=== PATIENT | female | born 1975 | race American Indian/Alaskan Native ===

== ENCOUNTER 2017-05-27 14:55 | Emergency (ER) | payer OTHER ==
[2017-05-27 15:06] VITALS: BMI 34.5
[2017-05-27] MEDS ORDERED: Betamethasone Soluspan 30 mg/5mL Inj Susp IM STA (15:06)
--- NOTE | 2017-05-27 16:52 | OBHP ---
Datetime: 05/27/2017 14:41 IP Adm Impression: , intrauterine ; No Active Labor IP Chief Complaint Other: For Celostone Injection IP Adm Impression Other: Twin , IP Admit Plan: Observation/Evaluation; Discharge home Admit Comment, IP Provider: with Twin sent here today from Dr Reinoso office for Ainsley ostone due to a shortened cervix on OB sonogram. She denies any current complaints. the benefits, ris ksand alternatives to steroid use were d/w the patient and all her questions were answered.. A dose o f betametazone was given and Pt asked to return in 24 hours for a repeat shot. Pt promises to return. She was also asked to return to Dr Reinoso for regular OB checks. Extremities - PN: Normal Abdomen - PN: Normal Back - PN: Normal Lungs - PN: Normal Heart - PN: Normal Neurologic - PN: Normal General - PN: Normal Presentation-Admit: Vertex FHR - Baseline A Provider: 130s Contraction Comments Provider: None Gestation - Est Wks by US: 31.0 Vital Signs Provider: Reviewed IP Chief Complaint: Maternal discomfort; Other NICHD Variability Prov Fetus A: Moderate 6-25bpm NICHD Accel Fetus A IP Provider: [id number] FHR Category Provider Fetus A: Category I NICHD Decel Fetus A IP Provider: None
[2017-05-27 22:05] VITALS: BP 110/61; PULSE 73; RESP 18; TEMP 98.9; O2SAT 100
== END 2017-05-27 16:10 | disposition home or self-care (01) ==
LOC: H.EROB2 14:55
DX: O26.873 Cervical shortening, third trimester (principal); O30.003 Twin pregnancy, unspecified number of placenta and unspecified number of amniotic sacs, third trimester; Z3A.31 31 weeks gestation of pregnancy; Z23 Encounter for immunization
CPT/HCPCS: 96372; 99283; J0702

== ENCOUNTER 2017-05-28 15:42 | Emergency (ER) | payer OTHER ==
[2017-05-28 15:47] VITALS: BMI 34.7
[2017-05-28] MEDS ORDERED: Betamethasone Soluspan 30 mg/5mL Inj Susp IM ONE (15:48)
--- NOTE | 2017-05-28 16:09 | OBHP ---
Datetime: 05/28/2017 15:49 Admit Comment, IP Provider: with Twin sent here today for second Celestone due to a s hortened cervix on OB sonogram. A dose of betametazone was given yesterday. She asked to return in 24 hours for a repeat shot. POBGYNH: x 1; C/S x 2 PMH: Anemia PSH: breast abscess; C/ S NKA PSOH: denies smoking ETOH drugs A: IUP at 30w; twin preg; shortened cevix PLAN: second dose of betamethosone Follow up Dr Hough Jun 02 Extremities - PN: Normal Abdomen - PN: Normal Back - PN: Normal Thyroid - PN: Normal Neurologic - PN: Normal HEENT - PN: Normal General - PN: Normal Genitourinary Exam: Normal
[2017-05-28 20:40] VITALS: BP 102/61; PULSE 69; RESP 18
== END 2017-05-28 16:35 | disposition home or self-care (01) ==
LOC: H.EROB2 15:42
DX: O26.843 Uterine size-date discrepancy, third trimester (principal); O30.003 Twin pregnancy, unspecified number of placenta and unspecified number of amniotic sacs, third trimester; Z23 Encounter for immunization; Z3A.30 30 weeks gestation of pregnancy
CPT/HCPCS: 96372; 99281; J0702

== ENCOUNTER 2017-07-14 05:45 | Inpatient (IN) | payer OTHER ==
[2017-07-14] MEDS ORDERED: Oxytocin 30 units/LR 500ML 30 U/500 ML BAG IV SCH (06:30)
[2017-07-14] MEDS: Lactated Ringer's 1,000 ML IV SCH ×5 (06:30→19:57)
[2017-07-14 07:19] LABS: BASO # 0.1 K/uL (0.0-0.2); BASO % 0.7 % (0.0-2.0); EOS # 0.1 K/uL (0.0-0.7); EOS % 0.8 % (0.0-4.0); HEMOGLOBIN 9.6 g/dL (12.0-16.0); LYMPH # 1.5 K/uL (1.0-4.3); LYMPH % 17.6 % (20.0-40.0); MEAN CELL VOLUME 77.9 fl (81.0-99.0); MEAN CORPUSCULAR HEMOGLOBIN 24.3 pg (27.0-31.0); MEAN CORPUSCULAR HGB CONC 31.2 g/dL (33.0-37.0); MONO # 0.6 K/uL (0.0-0.8); MONO % 6.9 % (0.0-10.0); NEUT # 6.4 K/uL (1.8-7.0); NRBC % 0.2 % (0.0-0.0); RBC 3.95 Mil/uL (3.80-5.20); RED CELL DISTRIBUTION WIDTH 30.4 % (11.5-14.5); WHITE BLOOD COUNT 8.6 K/uL (4.8-10.8)
[2017-07-14] MEDS ORDERED: ceFAZolin 2 GM in Sodium Chloride 0.9% 100 ML IVPB ONE (08:00)
[2017-07-14] MEDS ORDERED: Oxytocin 30 units/LR 500ML 30 UNITS/500 ML BAG IV ONE (08:02)
[2017-07-14] MEDS ORDERED: Morphine 1 mg/ml preservative-free Inj(Duramorph) ONE (09:27)
[2017-07-14] MEDS ORDERED: Phenylephrine 10 mg/ml Inj ONE (10:03)
[2017-07-14] MEDS ORDERED: Oxycodone/Acetaminophen 5/325 mg Tab PO PRN ×3 (10:52→14:51)
[2017-07-14] MEDS ORDERED: DiphenhydrAMINE 50 mg/ml Inj IVP PRN ×2 (11:10→14:51)
[2017-07-14] MEDS ORDERED: Naloxone 0.4 mg/ml Inj (Adult) IVP PRN ×2 (11:10→14:51)
[2017-07-14] MEDS ORDERED: Simethicone 80 mg Chewtab PO SCH (16:00)
[2017-07-14] MEDS: Simethicone 80 mg Chewtab PO SCH ×2 (17:07→22:45)
[2017-07-15] MEDS: Simethicone 80 mg Chewtab PO SCH ×4 (04:03→22:14)
[2017-07-15] MEDS: Oxycodone/Acetaminophen 5/325 mg Tab PO PRN ×2 (04:03→12:07)
[2017-07-15] MEDS: Lactated Ringer's 1,000 ML IV SCH (04:05)
[2017-07-15 06:42] LABS: HEMOGLOBIN 8.2 g/dL (12.0-16.0); MEAN CELL VOLUME 79.1 fl (81.0-99.0); MEAN CORPUSCULAR HEMOGLOBIN 24.8 pg (27.0-31.0); MEAN CORPUSCULAR HGB CONC 31.3 g/dL (33.0-37.0); RBC 3.32 Mil/uL (3.80-5.20); RED CELL DISTRIBUTION WIDTH 31.1 % (11.5-14.5); WHITE BLOOD COUNT 10.7 K/uL (4.8-10.8)
--- NOTE | 2017-07-15 07:52 | OBPPN ---
Datetime: 07/15/2017 07:48 PP Pain Prov: Within normal limits PP Nausea Prov: Denies PP Flatus Prov: Yes PP BM Prov: No PP Heart Prov: Not Done PP Abdomen/Uterus Prov: Normal PP Lochia Prov: Normal PP Extremities Prov: Normal PP C/S Incision Prov: Normal PP Progress Prov: Normal PP Comments Phys Exam Prov: Incision intact w/ steri strips PP Impression Prov: Normal progression PP Plan Prov: Continue present management PP Progress Note Prov: POD 1 s/p cesrean section for twins, doing well, breast and bottle feeding Continue current care Vital Signs Provider PP: Reviewed; Within Normal Limits
[2017-07-16] MEDS: Simethicone 80 mg Chewtab PO SCH ×4 (05:36→21:35)
--- NOTE | 2017-07-16 11:37 | OBPPN ---
Datetime: 07/16/2017 11:33 PP Pain Prov: Within normal limits PP Nausea Prov: Denies PP Flatus Prov: Yes PP BM Prov: No PP Breasts Prov: Normal PP Heart Prov: Normal PP Lungs Prov: Normal PP Abdomen/Uterus Prov: Normal PP Lochia Prov: Normal PP Vulva/Perineum Prov: Not Done PP CVA Tenderness Prov: Normal PP Extremities Prov: Normal PP C/S Incision Prov: Normal PP Progress Prov: Normal PP Impression Prov: Normal progression PP Plan Prov: Continue present management PP Progress Note Prov: She feels fine. Babies are in Level 2 nursery A: S/P day 2 A neg Anemia: asymptomatic PLAN: cnot post op care; anticiapte dischagre tmrw Vital Signs Provider PP: Reviewed; Within Normal Limits
[2017-07-17] MEDS: Simethicone 80 mg Chewtab PO SCH ×3 (02:44→13:25)
--- NOTE | 2017-07-17 16:50 | OBPPN ---
Datetime: 07/17/2017 16:48 PP Pain Prov: Within normal limits PP Nausea Prov: Denies PP Flatus Prov: Yes PP BM Prov: Yes PP Breasts Prov: Normal PP Heart Prov: Normal PP Lungs Prov: Normal PP Abdomen/Uterus Prov: Normal PP Lochia Prov: Normal PP Vulva/Perineum Prov: Normal PP CVA Tenderness Prov: Normal PP Extremities Prov: Normal PP Comments Phys Exam Prov: Incision clean, dry, intact No deep calf tenderness bilaterally Uterus firm, below umbilicus PP Impression Prov: Normal progression PP Plan Prov: Discharge PP Progress Note Prov: Postop day #3 status post repeat and bilateral tubal ligation, kristina vering well Discharge home with postop instructions Follow-up in office in 1 week for incision check Vital Signs Provider PP: Reviewed; Within Normal Limits
--- NOTE | 2017-07-17 16:53 | OBDCSUM ---
Datetime: 07/17/2017 13:23 Discharged to, Provider: Home Follow up at, Provider: Dr. Reinoso Disch Instr Activity: Normal activity Disch Instr Diet: Regular Discharge Instructions, Provider: Routine instructions given Discharge Diagnosis, Provider: Term Delivered Discharge Time: 07/17/2017 13:30 Follow up in weeks, Provider: in 1 week Disch Referrals: None Contraception discussed, Prov: Yes Disch Activity Restrictions: No exercising; No lifting; No driving; No sexual activity; Nothing in v agina - [place], tampons, douche Contraception after Delivery: Tubal Ligation
[2017-07-17 19:04] VITALS: BP 137/72; PULSE 83; RESP 18; TEMP 97; O2SAT 98
--- NOTE | 2017-07-17 21:19 | OP ---
PROCEDURE DATE: 07/14/2017 PREOPERATIVE DIAGNOSIS: Previous section x2, twin gestation. POSTOPERATIVE DIAGNOSIS: Previous section x2, twin gestation. OPERATION PERFORMED: Repeat low-flap transverse section via Pfannenstiel incision, bilateral tubal ligation in Miles fashion. OPERATIVE FINDINGS: Viable males. A male vertex presentation and infant B male vertex presentation. SURGEON: Mal Gore MD FRONT OFFICE ASSISTANT: Fritz Jain MD. Dr. Jain was present from the beginning of the procedure to the end of the procedure. Dr Jain was integral in exposing the surgical field, controlling intraoperative bleeding, and removal of intraoperative adhesions and manual delivery of the infants. TYPE OF ANESTHESIA: Spinal. ANESTHESIA ADMINISTERED BY: Dr. Chávez. IV FLUID INTAKE: 1800 mL lactated Ringer's. ESTIMATED BLOOD LOSS: 800 mL URINE OUTPUT: 100 mL of clear urine at the end of the procedure. COMPLICATIONS: None. DESCRIPTION OF PROCEDURE: The patient was taken to the operating room where spinal anesthesia was found to be adequate. The patient was prepped and draped in the normal sterile fashion in the dorsal supine position with a leftward tilt. A Pfannenstiel skin incision was made with a scalpel. This was carried down through to the underlying layer of fascia with the scalpel. Midline defect was made in the fascial layer with the scalpel. The fascial incision was then extended sharply bilaterally with curved Magdaleno scissors. The fascial layer was from the underlying rectus muscles both bluntly and sharply with curved Magdaleno scissors. The rectus muscles were at the midline. The peritoneum was then identified, tented up with Melissa clamps x2, and entered sharply with Metzenbaum scissors. This peritoneal incision was then extended superiorly and inferiorly with good visualization of the urinary bladder. A bladder blade was inserted into the abdomen. The vesicouterine peritoneum was then identified, tented up with upward with Melissa clamps x2, and entered sharply with Metzenbaum scissors. This peritoneal incision was then extended bilaterally sharply with Metzenbaum scissors. The bladder flap was created digitally. The Norma retractors were placed over the urinary bladder. The uterus was incised with a scalpel. The infant A's head was delivered atraumatically. Nose and mouth were suctioned with bulb suction. The remainder of the was delivered without complication. The cord was clamped and cut. The was handed off to awaiting pediatricians. Infant B was found in vertex presentation. B's head was delivered atraumatically. Nose and mouth were suctioned with bulb suction. The remainder of the was delivered without complication. The cord was clamped and cut. The infant was handed off to awaiting pediatricians. Cord blood was collected from each cord. The placenta was removed manually. The uterus was cleared of all clots and debris. The uterine incision was repaired with 0 Vicryl in a running, locked fashion. Reinspection of the uterine incision proved excellent hemostasis. Attention was then turned to the fallopian tubes. The fallopian tubes were grasped with Kamala clamps bilaterally, suture ligated in a Congress fashion with 2-0 Chromic x2 bilaterally, transected and approximately 3 cm portion of tube was removed bilaterally, and surgical pedicles were electrocauterized for hemostasis bilaterally. Reinspection of both pedicles were found to be hemostatic following tubal ligation. The abdomen and pelvis were irrigated with copious amounts of warm normal saline. Reinspection of the uterine incision and fallopian tube pedicles were found to be hemostatic. All instruments were removed from the patient. The peritoneal layer was closed with a running stitch of 2-0 Chromic. The rectus muscles were reapproximated with a running stitch of 2-0 Chromic. The fascial layer was closed with a running stitch of 0 Vicryl. The subcutaneous tissue was closed with a running stitch of 3-0 plain. The skin was closed with a subcutaneous stitch of 3-0 Vicryl. The patient tolerated the procedure well. All sponge count, lap count, and needle counts were correct x2. The patient was given 2 g of Ancef just prior to the beginning of the procedure. There were no complications. The patient was taken to the recovery room in awake and stable condition. Mal Gore MD
== END 2017-07-17 14:19 | disposition home or self-care (01) | DRG 370 ==
LOC: H.EROB2 05:45 → H.L&D 06:00 → H.OB/GYN 14:46
PROVIDERS: ADMIT Obstetrics & Gynecology; ATTEND Obstetrics & Gynecology
PROC: 10D00Z1 Extraction of Products of Conception, Low, Open Approach (ICD-10-PCS; principal; 2017-07-14)
PROC: 0UB70ZZ Excision of Bilateral Fallopian Tubes, Open Approach (ICD-10-PCS; 2017-07-14)
PROC: 4A1HXCZ Monitoring of Products of Conception, Cardiac Rate, External Approach (ICD-10-PCS; 2017-07-14)
DX: O34.219 Maternal care for unspecified type scar from previous cesarean delivery (principal); O99.02 Anemia complicating childbirth; N85.8 Other specified noninflammatory disorders of uterus; O30.009 Twin pregnancy, unspecified number of placenta and unspecified number of amniotic sacs, unspecified trimester; Z37.2 Twins, both liveborn; Z30.2 Encounter for sterilization